=== PATIENT | female | born 1985 | race Caucasian/White ===

== ENCOUNTER 2017-01-10 23:56 | Emergency (ER) | payer OTHER ==
[~2017-01-10] VITALS: Ht 165.1 cm; Wt 113.4 kg
[2017-01-11 00:03] VITALS: BP 136/82
--- NOTE | 2017-01-11 00:10 | PHYS DOC ---
Adult General Chief Complaint Chief Complaint: ASTHMA HPI HPI Patient is a 31 year old female presents to the emergency department with a 10 day history of increasing asthma symptoms. Patient states she is intermittently using her Advair and has not been using albuterol. She describes confusion about the use of her medications. She feels that she only uses the Advair when she is having an urgent condition. She states albuterol does not help at all. She reports no fever, no upper respiratory symptoms. Review of Systems Review of Systems Constitutional: Denies fever or chills [] Eyes: Denies change in visual acuity, redness, or eye pain [] HENT: Denies nasal congestion or sore throat [] Respiratory: Shortness of breath, wheezing Cardiovascular: No additional information not addressed in HPI [] GI: Denies abdominal pain, nausea, vomiting, bloody stools or diarrhea [] : Denies dysuria or hematuria [] Musculoskeletal: Denies back pain or joint pain [] Integument: Denies rash or skin lesions [] Neurologic: Denies headache, focal weakness or sensory changes [] Endocrine: Denies polyuria or polydipsia [] Current Medications Current Medications Current Medications Medications (Trade) Dose Ordered Sig/Robyn Start Time Stop Time Status Last Admin Dose Admin Albuterol/ Ipratropium (Duoneb) 3 ml 1X ONCE 01/11/17 00:15 01/11/17 00:18 DC 01/11/17 00:13 3 ML Allergies Allergies Allergies Coded Allergies Type Severity Reaction Last Updated Verified No Known Drug Allergies 01/11/17 No Physical Exam Physical Exam Constitutional: Well developed, well nourished, no acute distress, non-toxic appearance. [] HENT: Normocephalic, atraumatic, bilateral external ears normal, oropharynx moist, no oral exudates, nose normal. [] Neck: Normal range of motion, no tenderness, supple, no stridor. [] Cardiovascular:Heart rate regular rhythm, no murmur [] Lungs & Thorax: Breath sounds diminished with scattered is referred wheezing no retractions, no sensory muscle use. Skin: Warm, dry, no erythema, no rash. [] Extremities: No tenderness, no cyanosis, no clubbing, ROM intact, no edema. [] Neurologic: Alert and oriented X 3, normal motor function, normal sensory function, no focal deficits noted. [] Current Patient Data Vital Signs Vital Signs Date Time Temp Pulse Resp B/P (MAP) Pulse Ox O2 Delivery O2 Flow Rate FiO2 01/11/17 00:15 98 Room Air 01/11/17 00:03 97.8 83 20 97.8 EKG EKG [] Radiology/Procedures Radiology/Procedures [] Course & Med Decision Making Course & Med Decision Making 1225: DuoNeb treatment complete, patient reports she feels better. Breath sounds are clear to auscultate throughout. Oxygen saturation 99%. Dragon Disclaimer Dragon Disclaimer This electronic medical record was generated, in whole or in part, using a voice recognition dictation system. Departure Departure Impression: Primary Impression: Asthma exacerbation Disposition: HOME, SELF-CARE Condition: STABLE Referrals: NO PCP (PCP) [facility] Patient Instructions: Asthma Attacks, Prevention, Asthma, Adult Scripts Fexofenadine Hcl (PRIMITIVO ALLERGY) 180 Mg Tablet 1 TAB PO DAILY, #90 TAB 3 Refills Prov: REGINALDO GARCIA APRN 01/11/17 Methylprednisolone (MEDROL) 4 Mg Tab.ds.pk 1 PKG PO UD, #1 PKG Prov: REGINALDO GARCIA APRN 01/11/17 Albuterol Sulfate (PROAIR HFA INHALER) 8.5 Gm Hfa.aer.ad 1 PUFF INH PRN Q6HRS Y for SHORTNESS OF BREATH, #1 INHALER 0 Refills Prov: REGINALDO GARCIA APRN 01/11/17 Montelukast Sodium (MONTELUKAST SODIUM TABLET) 10 Mg Tablet 1 TAB PO DAILY, #90 TAB 3 Refills Prov: REGINALDO GARCIA APRN 01/11/17 Fluticasone/Salmeterol (ADVAIR 250-50 DISKUS) 1 Each Disk.w.dev 1 PUFF IH BID, #1 INHALER 3 Refills Prov: REGINALDO GARCIA APRN 01/11/17 REGINALDO GARCIA APRN Jan 11, 2017 00:10
[2017-01-11] MEDS ORDERED: IPRATRPIUM/ALBUTEROL 0.5/2.5MG 3 ML NEBU. NEB ONE (00:15)
[2017-01-11] MEDS ORDERED: PROAIR HFA8.5 GM INH (00:30)
[2017-01-11] MEDS ORDERED: METH4TAB2 PO (00:30)
[2017-01-11] MEDS ORDERED: FEXO180T81 PO (00:30)
[2017-01-11] MEDS ORDERED: MONT10TA9 PO (00:30)
[2017-01-11] MEDS ORDERED: FLUT1DIS3 IH (00:30)
== END 2017-01-11 00:36 | disposition home or self-care (01) ==
LOC: ER 23:56
DX: J45.901 Unspecified asthma with (acute) exacerbation (principal)
CPT/HCPCS: 94250; 94640; 99283; J7620